=== PATIENT | female | born 1945 | race Two or more races ===

== ENCOUNTER 2021-01-10 13:45 | Emergency (ER) | payer OTHER ==
[~2021-01-10] VITALS: Ht 157.5 cm; Wt 54.4 kg
[2021-01-10] MEDS ORDERED: ATORVASTATIN CA40 MG PO (13:53)
[2021-01-10] MEDS ORDERED: TOPROL XL25 M1 PO (13:53)
[2021-01-10] MEDS ORDERED: ZESTRIL10 M1 PO (13:53)
[2021-01-10] MEDS ORDERED: ECOTRIN81 MG PO (13:53)
[2021-01-10] MEDS ORDERED: DRAMAMINE LESS25 MG PO (13:54)
[2021-01-10] MEDS ORDERED: GLIPIZIDE XL10 MG PO (13:54)
[2021-01-10] MEDS ORDERED: ZYRTEC10 MG PO (19:39)
[2021-01-10] MEDS ORDERED: BENZONATATE200 M1 PO (19:39)
== END 2021-01-10 20:32 | disposition home or self-care (01) ==
LOC: ER 13:45
DX: B34.9 Viral infection, unspecified (principal); B96.0 Mycoplasma pneumoniae [M. pneumoniae] as the cause of diseases classified elsewhere; Z11.52 Encounter for screening for COVID-19